=== PATIENT | female | born 1965 | race Caucasian/White ===

== ENCOUNTER 2020-05-01 18:41 | Emergency (ER) | payer OTHER | END 2020-05-01 20:53 | disposition home or self-care (01) | LOC: FER 18:41 | DX: S90.32XA Contusion of left foot, initial encounter (principal); F17.210 Nicotine dependence, cigarettes, uncomplicated; W20.8XXA Other cause of strike by thrown, projected or falling object, initial encounter | CPT/HCPCS: 73620 ==

== ENCOUNTER 2021-05-02 03:12 | Emergency (ER) | payer OTHER ==
[2021-05-02] MEDS ORDERED: NAPROXEN500 MG PO (05:36)
[2021-05-02] MEDS ORDERED: MAXALT MLT10 MG SL (05:36)
[2021-05-02] MEDS ORDERED: REGLAN10 M1 PO (05:36)
== END 2021-05-02 05:45 | disposition home or self-care (01) ==
LOC: FER 03:12
DX: G43.909 Migraine, unspecified, not intractable, without status migrainosus (principal); E07.9 Disorder of thyroid, unspecified; E78.5 Hyperlipidemia, unspecified; Z79.890 Hormone replacement therapy; Z79.899 Other long term (current) drug therapy
CPT/HCPCS: 70450; J1100; J1885; J2765; J3475; J7030

== ENCOUNTER 2021-05-07 09:58 | Emergency (ER) | payer OTHER ==
[~2021-05-07 09:58] MED LIST: MAXALT MLT10 MG SL; NAPROXEN500 MG PO; REGLAN10 M1 PO
[2021-05-07 15:26] LABS: BASOPHIL 0.6 % (0-2); EOSINOPHIL 3.6 % (0-5); HCT 43.8 % (37.0-47.0); HGB 14.4 g/dl (12.5-16.0); LYMPHOCYTE 39.7 % (15-48); MCH 30.3 pg (25.0-31.0); MCHC 32.9 g/dL (32.0-36.0); MCV 92.2 fL (78.0-100.0); MPV 9.8 fL (6.0-9.5); NEUTROPHIL 46.8 % (41-80); NRBC 0; PLT 277 K/uL (150-400); RBC 4.75 M/uL (4.20-5.40); RDW 13.2 % (11.5-14.0); WBC 7.8 K/uL (4.0-10.5)
[2021-05-07 15:44] LABS: BILIRUBIN - TOTAL 0.3 mg/dL (0.2-1.0); BUN/CREAT RATIO (CALC) 15.5 RATIO; CREATININE 0.71 mg/dL (0.51-0.95); GLOBULIN (CALCULATION) 3.6 g/dL; POTASSIUM 3.7 mmol/L (3.5-5.1); TOTAL PROTEIN 7.6 g/dL (6.4-8.2)
[2021-05-07 16:55] LABS: CORONAVIRUS 2019 SARS-COV-2 NEGATIVE (NEGATIVE); INFLUENZA A NAA NEGATIVE (NEGATIVE)
[2021-05-07] MEDS ORDERED: BACTRIM DS TAB1 EACH PO (17:41)
[2021-05-07] MEDS ORDERED: AUGMENTIN 875-1 EACH PO (17:41)
== END 2021-05-07 17:53 | disposition home or self-care (01) ==
LOC: FER 09:58
PROVIDERS: Emergency Medicine
DX: L03.213 Periorbital cellulitis (principal); H53.2 Diplopia; Z20.822 Contact with and (suspected) exposure to COVID-19
CPT/HCPCS: 36415; 70450; 70487; 80053; 84145; 85025; 86140; 87040; Q9967; U0002